=== PATIENT | female | born 1950 | race African-American/Black ===

== ENCOUNTER 2016-06-11 18:40 | Emergency (ER) | payer MEDICARE ==
--- NOTE | ~2016-06-11 | CT2 ---
[facility] A Service of [facility] & [facility] RADIOLOGY TEXT RESULTS PATIENT: BRANDON TSE LOCATION: [facility] : 50 UNIT #: [id number] AGE: [address]: Meghan Ba MD SEX: F ORDER DR: [id number] [facility] [place] [address] [place] [place], [place] [address] [id number] MR#: [id number] Acc #: [id number] NAME: BRANDON TSE. : 1950 SEX: F STUDY DATE/TIME: 06/11/2016 20:44 UNIT: [facility] ROOM: STUDY DESCRIPTION: CT Abd and Pelv W Cont Attending Physician: Meghan Ba M.D. Ordering Physician: Meghan Ba M.D. Primary Care Physician: [facility] MEDICAL IMAGING REPORT This report is preliminary unless electronic signature is present EXAM CT abdomen and pelvis 06/11/2016. HISTORY Lower abdomen pain, pelvic pain for [address] exam was performed with one or more of the following radiation dose reduction techniques: automatic exposure control, adjustment of mA and/or kV according to patient size, and iterative reconstruction. FINDINGS CT abdomen and pelvis performed with intravenous administration of 100 mL Isovue-370. Enteric contrast not administered. Study limited in the absence of enteric contrast. Comparison 06/06/2015. Linear scarring or atelectasis at the lung bases. 3 mm ground-glass nodule inferior left upper lobe unchanged from prior examination and felt to be benign in nature given stability over this time frame. Heart mildly enlarged. Stable. Focal fatty infiltration in liver adjacent to the falciform ligament. No suspicious hepatic lesion. The gallbladder, spleen, pancreas, adrenal glands, unremarkable. The left kidney unremarkable. Punctate nonobstructing right renal calculus mid kidney unchanged. Right lower pole renal cyst measuring approximately 1 cm. No perinephric inflammatory change. No hydronephrosis, hydroureter or ureteral calculi. CT Pelvis: No inguinal adenopathy. Urinary bladder unremarkable. Status post hysterectomy. Pelvic floor laxity unchanged. No free fluid in the pelvis. No pelvic or retroperitoneal adenopathy. Distal esophagus, stomach, small bowel unremarkable. Appendix normal. Colon unremarkable. Pelvic floor extends approximately 4.8 cm below the pubococcygeal line. Not significantly changed from prior study. No acute adjacent inflammatory change is seen. Atherosclerotic arterial calcifications. No aneurysm. Bony structures show stable grade 1 anterolisthesis L4-L5. Superior endplate Schmorl node L3. No acute appearing bony abnormality. STS. [facility] A Service of [facility] RADIOLOGY TEXT RESULTS PATIENT: BRANDON TSE LOCATION: [facility] : 50 UNIT #: [id number] AGE: [address]: Meghan Ba MD SEX: F ORDER DR: IMPRESSION 1. No clearly acute abnormality is seen in the abdomen or pelvis. 2. Focal fatty infiltration of liver without suspicious focal hepatic parenchymal abnormality. 3. Gallbladder, pancreas, and kidneys show no acute abnormality. 4. Stable punctate nonobstructing calculus mid-right kidney. Small right lower pole renal cyst. 5. Appendix normal. Remainder of the alimentary canal unremarkable. 6. Status post hysterectomy. 7. Stable appearance of pelvic floor laxity with the lower pelvic structures/pelvic floor extending approximately 4.8 cm inferior to the pubococcygeal line. No change from May 2015. No associated inflammatory change. No abnormal fluid collections in the abdomen or pelvis. 8. Degenerative changes in the spine stable. 9. Atherosclerotic arterial calcifications. No aneurysm. 10. Stable borderline cardiac enlargement. 11. Stable 3 mm ground-glass nodule inferior left upper lobe. No change from May 2015 and felt to be benign in nature. Dictated by... Anderson Smith M.D. THIS IS AN ELECTRONICALLY VERIFIED REPORT Anderson Smith M.D. at 06/12/2016 2:19 PM Irina TD: 06/12/2016 12:05 JOB #: [id number] MEDICAL IMAGING REPORT Page 1 of 1 COPY
[~2016-06-11 18:40] MED LIST: ASPIRINEC PO; BAYER CHEWABLE81 MG PO; HCTZ PO; LISINOPRIL PO; METOPROLOL TAR25 MG PO; MOTRIN100 MG PO; MOTRIN400 MG PO; ZESTORETIC 20-1 EACH PO
[2016-06-11 19:26] LABS: BASOPHIL% 0.3 % (0-2.5); EOSINOPHIL% 0.6 % (0.0-7.0); HEMATOCRIT 39.9 % (35.0-45.0); HEMOGLOBIN 13.1 gm/dL (12.0-16.0); LYMPHOCYTE# 2.5 X10e3 (1.0-3.5); LYMPHOCYTE% 33.5 % (17.0-45.0); MEAN CELL VOLUME 96.6 FL (83-96); MEAN CORPUSCULAR HEMOGLOBIN 31.7 PG (28-34); MEAN CORPUSCULAR HGB CONC 32.8 g/dL (30-36); MEAN PLATELET VOLUME 8.6 FL (6.5-11.5); MONOCYTE# 0.4 X10e3 (0-1.0); NEUTROPHIL# 4.4 X10e3 (1.5-7.1); NEUTROPHIL% 60.6 % (40-75); PLATELET COUNT 167 X10e3 (140-420); RED BLOOD COUNT 4.13 X10e (3.90-5.30); RED CELL DISTRIBUTION WIDTH 12.7 % (11.0-15.5); WHITE BLOOD COUNT 7.3 X10e3 (4.0-10.5)
[2016-06-11 19:30] LABS: DIFF IND NO
[2016-06-11 19:46] LABS: ALBUMIN SERUM 3.4 g/dL (3.5-5.0); ALKALINE PHOSPHATASE 79 U/L (32-92); ALT (SGPT) 12 U/L (10-40); AST (SGOT) 15 U/L (10-42); BILIRUBIN, DIRECT 0.1 mg/dL (0.0-0.2); BILIRUBIN,INDIRECT 0.1 mg/dL (0.0-0.9); BILIRUBIN,TOTAL 0.2 mg/dL (0.2-2.0); BLOOD UREA NITROGEN 14 mg/dL (9-23); CALCIUM SERUM 8.6 mg/dL (8.4-10.2); CARBON DIOXIDE 25 mmol/L (22-31); CHLORIDE 104 mmol/L (100-111); CREATININE SERUM 0.7 mg/dL (0.6-1.4); GLOM FILT RATE Estimated ABOVE60 mL/min (>60); GLUCOSE FASTING 89 mg/dL (70-110); LIPASE 26 U/L (22-51); POTASSIUM 3.9 mmol/L (3.5-5.1); PROTEIN TOTAL SERUM 7.3 g/dL (6.0-8.3); SODIUM 138 mmol/L (135-145)
[2016-06-11 20:03] LABS: URINE SOURCE CLEAN CATCH
[2016-06-11 20:11] LABS: URINE APPEARANCE CLEAR; URINE BILIRUBIN NEG (NEG); URINE BLOOD NEG (NEG); URINE COLOR YELLOW; URINE GLUCOSE NEG (NEG); URINE KETONE NEG (NEG); URINE LEUKOCYTE ESTERASE TRACE (NEG); URINE NITRATE NEG (NEG); URINE PH 5.5 (5-8); URINE PROTEIN NEG (NEG); URINE SPECIFIC GRAVITY 1.017 (1.003-1.035); URINE UROBILINOGEN 0.2 MG/DL (NEG)
[2016-06-11 20:14] LABS: URBCS1 AUWI 0-2 /[HPF] (0-2); URINE BACTERIA AUWI NEG (NEGATIVE); URINE SQUAMOUS EPITHELIAL CELL OCC /[HPF]
[2016-06-11 20:19] LABS: CULTURE INDICATED? NO
== END 2016-06-11 22:43 | disposition home or self-care (01) ==
LOC: CED 18:40
PROVIDERS: Emergency Medicine
DX: R10.9 Unspecified abdominal pain (principal); I10 Essential (primary) hypertension; F17.210 Nicotine dependence, cigarettes, uncomplicated; Z88.5 Allergy status to narcotic agent
CPT/HCPCS: 36415; 74177; 80048; 80076; 81003; 83690; 85025; 99284; Q9967